=== PATIENT | male | born 1955 | race Caucasian/White ===

== ENCOUNTER 2023-02-02 03:48 | Emergency (ER) | payer BC, SELFPAY ==
[2023-02-02 03:54] VITALS: BP 119/77; PULSE 75; RESP 16; TEMP 36.6; O2SAT 97
--- NOTE | 2023-02-02 04:27 | ED_ITS ---
HPI - Ear Problem General Date Seen: 02/02/23 Chief complaint: Ear/Nose/Throat Problem Stated complaint: Left Ear Pain Time Seen by Provider: 02/02/23 04:05 Source: patient Mode of arrival: ambulatory Limitations: no limitations History of Present Illness HPI Narrative: Patient is a 67-year-old male who presents with a hissing sound in his left ear that woke him from sleep. He uses Flonase and Theresa for head congestion but denies a history of seasonal allergies. He is also on baby aspirin and gabapentin. He uses methylprednisolone intermittently for low back pain but has not used it recently. He had no injury to his ear. He has not noticed any change in his ability to hear. He wears hearing aids and feels that they have been working just fine. He denies dizziness or vertigo. Related Data Allergies Allergy/AdvReac Type Severity Reaction Status Date / Time No Known Drug Allergies Allergy Verified 02/02/23 03:56 Review of Systems Narrative: Review of systems is as outlined above otherwise noted to be negative. PFSH PFS Social History Smoking Status: Never smoker Non-prescribed substance use: denies use Exam Narrative: Exam Narrative: Vitals noted. HEENT: Conjunctiva clear. Left ear canal was almost completely cerumen occluded. I performed ear lavage and the wax was removed completely. Tympanic membranes are pearly white bilaterally. No perforation or foreign body in the left ear. After the ear lavage he did replace the hearing aid and the frequency of the noise did seem to change but it did not go away. Posterior pharynx is c lear without erythema or exudate. Neck is supple without adenopathy, thyromegaly, carotid bruit. Lungs: Clear to auscultation in all man. No wheezes, rales, rhonchi. Heart: Regular rate and rhythm without murmur. Skin: No abnormalities noted of the exposed skin. Neurologic: Awake, alert, fully oriented. Neurologic exam is nonfocal. Const: Vital Signs, click to edit/add: Vital Signs - 24 hr 02/02/23 03:54 Temperature 97.9 F Pulse Rate [Left P ulse Oximeter] 75 Respiratory Rate 16 Blood Pressure [Ri ght Upper Arm] 119/77 Pulse Oximetry 97 Oxygen Delivery Me thod Room Air Course Vital Signs Vital signs: Initial Vital Signs Temperature 97.9 F 02/02/23 03:54 Temperature Source Temporal Artery Scan 02/02/23 03:54 Pulse Rate 75 02/02/23 03:54 Pulse Rhythm Regular 02/02/23 03:54 Respiratory Rate 16 02/02/23 03:54 Blood Pressure 119/77 02/02/23 03:54 Blood Pressure Mean 91 02/02/23 03:54 Blood Pressure Position Sitting 02/02/23 03:54 Pulse Oximetry 97 02/02/23 03:54 Oxygen Delivery Method Room Air 02/02/23 03:54 Vital Signs Temperature 97.9 F 02/02/23 03:54 Pulse Rate 75 02/02/23 03:54 Respiratory Rate 16 02/02/23 03:54 Blood Pressure 119/77 02/02/23 03:54 Pulse Oximetry 97 02/02/23 03:54 Oxygen Delivery Method Room Air 02/02/23 03:54 Temperature 97.9 F 02/02/23 03:54 Pulse Rate 75 02/02/23 03:54 Respiratory Rate 16 02/02/23 03:54 Blood Pressure 119/77 02/02/23 03:54 Pulse Oximetry 97 02/02/23 03:54 Oxygen Delivery Method Room Air 02/02/23 03:54 Medical Decision Making MDM Narrative Medical decision making narrative: We discussed that I do not see any sign of infection or foreign body. Hopefully the lavage will be beneficial. This certainly could be plugged eustachian tube although he is already on a good nasal spray and antihistamine. I do not see anything worrisome. He has not had any hearing loss. I do not think there is anything else for us to do in the ER in the middle of the night but I have encouraged him to follow-up with audiology/ENT if the symptoms are not improving. Discharge Plan Discharge Clinical Impression: Tinnitus of left ear, Cerumen impaction Patient Disposition: Home, Self-Care Condition: Stable Additional Instructions: Continue Flonase and Theresa. If the noise in your ear doesn't resolve please follow up with Audiology and ENT for further evaluation and treatment. If you have a sudden change in your ability to hear please return to the ED. Follow Up/Referrals: Gene Teresa MD [Referring] - Stand Alone Forms: [employer] Info Instructions
== END 2023-02-02 04:54 | disposition home or self-care (01) ==
LOC: ED 04:41
PROVIDERS: Emergency Provider Family Medicine; PCP Family Medicine
DX: H61.22 Impacted cerumen, left ear (principal); H93.12 Tinnitus, left ear
CPT/HCPCS: 69209; 99281; 99282

== ENCOUNTER 2023-02-21 06:42 | Emergency (ER) | payer BC, SELFPAY ==
[2023-02-21 06:48] VITALS: BP 160/91; PULSE 84; RESP 16; TEMP 36.9; O2SAT 98; BMI 22.2
--- NOTE | 2023-02-21 06:56 | ED.NECK ---
HPI - Neck Pain/Injury General Time Seen by Provider: 06:56 Date Seen: 02/21/23 Chief Complaint: Neck Injury/Pain Stated Complaint: neck pain Time Seen by Provider: 02/21/23 06:51 Source: patient, RN notes reviewed and old records reviewed Mode of arrival: ambulatory Limitations: no limitations History of Present Illness HPI Narrative: 67-year-old male who comes in today with about 1 week of neck pain. Patient had a massage last week, started having neck pain after that. Had to chiropractic adjustments with no improvement, had another massage yesterday pain is worse this morning. Pain is worse with movement. No swallowing difficulty, no headache, no numbness or tingling in the arms or legs. Patient did not have pain prior to his initial was son should but did not have neck manipulation at that time, also denies any recent fall or injury. Took ibuprofen earlier and started a Medrol Dosepak this morning. Related Data Home Medications Medication Instructions Recorded Confirmed No Known Home Medications 02/21/23 02/21/23 Allergies Allergy/AdvReac Type Severity Reaction Status Date / Time No Known Drug Allergies Allergy Verified 02/02/23 03:56 [facility] Social History Smoking Status: Never smoker Do you use any of these nicotine containing products: None How often do you have a drink containing alcohol: never AUDIT-C Alcohol total score: 0 Non-prescribed substance use: denies use Exam Narrative: Exam Narrative: General: well nourished , NAD Head: Atraumatic and normocephalic Neck: Bilateral paraspinous tenderness with no midline tenderness, limited range of motion due to pain ENT: External ears and external nose are normal Eyes: Conjunctiva clear, pupils are equal reactive, external ocular motions are intact Neck: Full spontaneous range of motion of the neck Lungs: No respiratory distress Musculoskeletal: No tenderness or deformity Neurologic: No gross focal neurologic deficits Skin: No rashes Psych: Mood and affect are appropriate Const: Vital Signs, click to edit/add: Vital Signs - 24 hr 02/21/23 06:48 Temperature 98.5 F Pulse Rate [Left P ulse Oximeter] 84 Respiratory Rate 16 Blood Pressure [Ri ght Upper Arm] 160/91 H Pulse Oximetry 98 Oxygen Delivery Me thod Room Air Course Course Hospital Course: Patient seen and examined, prior records reviewed. Patient with atraumatic neck pain. No neck manipulation to the onset of this to suggest vertebral dissection, no history of trauma to suggest fracture or dislocation. Bilateral paraspinous tenderness and spasm with no sternocleidomastoid spasm. No difficulty swallowing and no fevers. Patient started a Medrol Dosepak today, will be given Centre and Ativan to help with symptom management, and follow-up with primary care. The pain with neck movement but no meningeal signs, meningitis unlikely. Vital Signs Vital signs: Initial Vital Signs Temperature 98.5 F 02/21/23 06:48 Temperature Source Temporal Artery Scan 02/21/23 06:48 Pulse Rate 84 02/21/23 06:48 Respiratory Rate 16 02/21/23 06:48 Blood Pressure 160/91 H 02/21/23 06:48 Blood Pressure Mean 114 H 02/21/23 06:48 Blood Pressure Position Sitting 02/21/23 06:48 Pulse Oximetry 98 02/21/23 06:48 Oxygen Delivery Method Room Air 02/21/23 06:48 Vital Signs Temperature 98.5 F 02/21/23 06:48 Pulse Rate 84 02/21/23 06:48 Respiratory Rate 16 02/21/23 06:48 Blood Pressure 160/91 H 02/21/23 06:48 Pulse Oximetry 98 02/21/23 06:48 Oxygen Delivery Method Room Air 02/21/23 06:48 Temperature 98.5 F 02/21/23 06:48 Pulse Rate 84 02/21/23 06:48 Respiratory Rate 16 02/21/23 06:48 Blood Pressure 160/91 H 02/21/23 06:48 Pulse Oximetry 98 02/21/23 06:48 Oxygen Delivery Method Room Air 02/21/23 06:48 Discharge Plan Discharge Clinical Impression: Strain of neck muscle, Cervicalgia Patient Disposition: Home, Self-Care Condition: Stable Instructions: Cervical Strain (ED), Acute Neck Pain (ED) Additional Instructions: Apply warm moist heat 3 to 4 times a day for 15-20 minutes at a time. Avoid rapid movements. Gentle stretching. Activity Level: No strenuous activity Discharge Diet: Regular Prescriptions: No Action No Known Home Medications Follow Up/Referrals: Gene Teresa MD [Primary Care Provider] - Stand Alone Forms: [employer] Info Instructions
[2023-02-21] MEDS: KETOROLAC 30 MG/ML inj IM (07:11)
== END 2023-02-21 07:17 | disposition home or self-care (01) ==
PROVIDERS: Emergency Provider Family Medicine; PCP Family Medicine
DX: S16.1XXA Strain of muscle, fascia and tendon at neck level, initial encounter (principal); M54.2 Cervicalgia
CPT/HCPCS: 96372; 99283; 99284; J1885